=== PATIENT | male | born 1980 | race Caucasian/White ===

== ENCOUNTER 2017-08-06 17:57 | Emergency (ER) | payer MEDICAID ==
--- NOTE | 2017-08-06 18:18 | EDPHY ---
H & P Time Seen by Provider: 08/06/17 17:57 HPI/ROS: CHIEF COMPLAINT: Alcohol intoxication HISTORY OF PRESENT ILLNESS: 30-year-old male presents with alcohol intoxication. He was brought in by EMS because of alcohol intoxication in public and being combative. He is now unresponsive to verbal stimuli and unable to provide any clinical history. REVIEW OF SYSTEMS: Unable to determine (Carissa Lozano) Past Medical/Surgical History: Unknown (Carissa Lozano) Physical Exam: General Appearance: Alert, combative on arrival, obtunded now on my exam Eyes: Pupils dilated, dysconjugate gaze ENT, Mouth: Mucous membranes moist, no trauma Respiratory: Lungs are clear to auscultation Cardiovascular: Regular rate and rhythm Gastrointestinal: Abdomen is soft Neurological: obtunded, no response to painful stimuli Skin: warm and dry Extremities: normal inspection Psychiatric: unable to determine (Carissa Lozano) Constitutional: Initial Vital Signs Temperature (C) 36 C 08/06/17 17:57 Heart Rate 63 08/06/17 17:57 Respiratory Rate 16 08/06/17 17:57 Blood Pressure 129/82 H 08/06/17 17:57 O2 Sat (%) 99 08/06/17 17:57 O2 Delivery Mode Nasal Cannula O2 (L/minute) 2 Allergies/Adverse Reactions: Unable to Assess Allergy (Unverified 08/06/17 18:27) Home Medications: Medication Instructions Recorded Unobtainable 08/06/17 Medical Decision Making ED Course/Re-evaluation: 8:30pm--Moans to sternal rub. 930pm--unable to ambulate 10:45 p.m. still unable to ambulate 11:45 p.m.-signed over to at shift change. Once able to ambulate, will go to the [facility] (Carissa Lozano) Other Provider: 2330 care assumed by me from Dr. Lozano pending improve sobriety. 0120 Patient is now awake and appropriate. Ambulating unassisted to the bathroom. No current complaints. Medically cleared for the [facility] (Aravind Jones) - Data Points Laboratory Results: Laboratory Results 08/06/17 18:50 08/06/17 18:50 08/06/17 08/06/17 18:50 18:50 WBC 7.70 10^3/uL 10^3/uL (3.80-9.50) RBC 4.83 10^6/uL 10^6/uL (4.40-6.38) Hgb 14.9 g/dL g/dL (13.7-17.5) Hct 43.6 % % (40.0-51.0) MCV 90.3 fL fL (81.5-99.8) MCH 30.8 pg pg (27.9-34.1) MCHC 34.2 g/dL g/dL (32.4-36.7) RDW 12.1 % % (11.5-15.2) Plt Count 246 10^3/uL 10^3/uL (150-400) MPV 10.3 fL fL (8.7-11.7) Neut % (Auto) 52.8 % % (39.3-74.2) Lymph % (Auto) 29.0 % % (15.0-45.0) [place] % (Auto) 8.1 % % (4.5-13.0) Eos % (Auto) 9.2 % H % (0.6-7.6) Baso % (Auto) 0.5 % % (0.3-1.7) Nucleat RBC Rel Count 0.0 % % (0.0-0.2) Absolute Neuts (auto) 4.07 10^3/uL 10^3/uL (1.70-6.50) Absolute Lymphs (auto) 2.23 10^3/uL 10^3/uL (1.00-3.00) Absolute Monos (auto) 0.62 10^3/uL 10^3/uL (0.30-0.80) Absolute Eos (auto) 0.71 10^3/uL H 10^3/uL (0.03-0.40) Absolute Basos (auto) 0.04 10^3/uL 10^3/uL (0.02-0.10) Absolute Nucleated RBC 0.00 10^3/uL 10^3/uL (0-0.01) Immature Gran % 0.4 % % (0.0-1.1) Immature Gran # 0.03 10^3/uL 10^3/uL (0.00-0.10) Sodium 139 mEq/L mEq/L (134-144) Potassium 3.8 mEq/L mEq/L (3.5-5.2) Chloride 104 mEq/L mEq/L (97-110) Carbon Dioxide 25 mEq/l mEq/l (22-31) Anion Gap 10 mEq/L mEq/L (8-16) BUN 8 mg/dL mg/dL (7-23) Creatinine 0.8 mg/dL mg/dL (0.7-1.3) Estimated GFR > 60 Glucose 94 mg/dL mg/dL (70-100) Calcium 9.0 mg/dL mg/dL (8.5-10.4) Ethyl Alcohol 247 mg/dL H mg/dL (0-10) Departure - Departure Disposition: Home, Routine, Self-Care Clinical Impression: Alcoholic intoxication Qualifiers: Complication of substance-induced condition: uncomplicated Qualified Code(s): F10.920 - Alcohol use, unspecified with intoxication, uncomplicated Condition: Good Instructions: Alcohol Intoxication (ED) Referrals: Sophia Lou MD [Medical Doctor] - Follow Up Only If Needed
[2017-08-06 19:04] LABS: % IMMATURE GRANULYOCYTES 0.4 % (0.0-1.1); ABSOLUTE IMMATURE GRANULOCYTES 0.03 10^3/uL (0.00-0.10); ADD DIFF? NO; ADD MORPH? NO; ADD SCAN? NO; ATYPICAL LYMPHOCYTE FLAG 0 (0-99); FRAGMENT RBC FLAG 0 (0-99); HEMATOCRIT 43.6 % (40.0-51.0); HEMOGLOBIN 14.9 g/dL (13.7-17.5); LEFT SHIFT FLG 0 (0-99); LIPEMIA HEMOLYSIS FLAG 90 (0-99); MEAN CELL HEMOGLOBIN 30.8 pg (27.9-34.1); MEAN CELL HEMOGLOBIN CONCENTR. 34.2 g/dL (32.4-36.7); MEAN CELL VOLUME 90.3 fL (81.5-99.8); MEAN PLATELET VOLUME 10.3 fL (8.7-11.7); PLATELET CLUMPS FLAG 10 (0-99); PLATELET COUNT 246 10^3/uL (150-400); RED BLOOD CELL COUNT 4.83 10^6/uL (4.40-6.38); RED CELL DISTRIBUTION WIDTH 12.1 % (11.5-15.2)
[2017-08-06 19:24] LABS: ANION GAP 10 mEq/L (8-16); CARBON DIOXIDE 25 mEq/l (22-31); CHLORIDE 104 mEq/L (97-110); CREATININE 0.8 mg/dL (0.7-1.3); ETHANOL SERUM 247 mg/dL (0-10); GLOMERULAR FILTRATION RATE > 60; GLUCOSE 94 mg/dL (70-100); POTASSIUM 3.8 mEq/L (3.5-5.2); SODIUM 139 mEq/L (134-144)
[2017-08-07 00:33] VITALS: RESP 16
[2017-08-07 01:21] VITALS: BP 134/76; PULSE 76; TEMP 97.9; O2SAT 96
[2017-08-07] MEDS ORDERED: CHLORDIAZEPOXIDE 25MG PREPK#6 BTL TAKEHOME ONE (01:21)
== END 2017-08-07 01:38 | disposition home or self-care (01) ==
LOC: EDBD 17:57
DX: F10.920 Alcohol use, unspecified with intoxication, uncomplicated (principal)
CPT/HCPCS: G0480